=== PATIENT | female | born 1950 | race Caucasian/White ===

== ENCOUNTER → 2017-12-03 | Outpatient (CLI) | payer OTHER ==
[~2017-12-03] MED LIST: GADOBENATE DIMEGLUMINE 1 ML IV ONE
[2017-12-03 13:03] LABS: CREATININE, SERUM 1.06 mg/dL (0.57-1.11)
--- NOTE | 2017-12-04 12:29 | Diagnostic Imaging Report ---
ADDENDUM #1 Comparison to outside brain MRI performed on 10/30/2017: Abnormal low T1, high T2 and enhancement in the left nasopharyngeal region/skull base was already present on prior study. Again an ENT evaluation with histologic correlation is advised. The findings were discussed with the attending physician Dr. Rolle at the time of this dictation. Signed by: Dr. Katherine Peterson M.D. on 12/09/2017 3:20 PM ORIGINAL REPORT EXAMINATION: MRI of the neck without and with contrast HISTORY:Parotid mass COMPARISON:None available TECHNIQUE:Axial T1 FS, sagittal and coronal T1 precontrast, axial T2 fat sat, DWI, PD, coronal T2 fat sat, post contrast axial and coronal T1 fat sat Intravenous contrast: 10 mL of MultiHance. 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 There is no infiltration of the surrounding structures. -No specific T2 hyperintensity and enhancement within the left side of the inferior clivus/foramen magnum, left prevertebral muscles, posterior aspect of the left carotid space and left oropharynx, with partial effacement of the left posterolateral recess/fossa of Rosenmuller. Extension into the left parapharyngeal space is suspected. No definite intracranial involvement is seen at this time. This findings are worrisome for neoplasm with local infiltration of the surrounding structures or perhaps treatment related changes to previously treated pathology, correlation with past medical history is advised. LYMPH NODES: No enlarged cervical lymphadenopathy. OTHERS: Major salivary glands: Unremarkable. Thyroid gland: Unremarkable. Larynx: Unremarkable. Oral cavity: Unremarkable. Pharynx: Unremarkable . Blood vessels: Unremarkable. Sinuses: Unremarkable. Bones: Disc osteophyte, uncovertebral and facet arthrosis C5-C6 and C6-C7 resulting canal or foramina narrowing. IMPRESSION: 1. Nonspecific T2 hyperintense and enhancing abnormality within the left nasopharynx, underlying prevertebral muscles, clivus and carotid space, worrisome for neoplasm or perhaps posttreatment changes, correlation with past medical history, comparison to prior studies if available and ENT evaluation are recommended. 2. 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 Comparison to prior studies is advised to determine stability. 3. No enlarged cervical lymphadenopathy. Signed by: Dr. Katherine Peterson M.D. on 12/04/2017 12:25 PM
== END ==
LOC: US 10:48
PROVIDERS: ATTEND Otolaryngology
DX: K11.9 Disease of salivary gland, unspecified (principal)
CPT/HCPCS: 36415; 70543; 82565; 84520

== ENCOUNTER → 2019-07-23 | Outpatient (CLI) | payer MEDICARE ==
--- NOTE | 2019-07-23 19:17 | Diagnostic Imaging Report ---
Parathyroid Scan with SPECT Reason for exam: Hyperparathyroidism Radiopharmaceutical: Tc-99m sestamibi 27.5 mCi After intravenous administration of the radiopharmaceutical, immediate and 2-hour planar images of the neck and upper chest were obtained. Tomographic images of the neck and upper chest were also obtained following the initial planar images. Distribution of tracer activity appears physiologic throughout the neck and upper chest on the planar and tomographic images. No focal areas of increased tracer accumulation are identified. On the delayed planar images, washout of tracer from the thyroid is complete with no focal areas of persistent tracer activity. Impression: Negative parathyroid scan No enlarged hypermetabolic parathyroid glands are identified. Signed by: Dr. Janey Segura M.D. on 07/23/2019 7:14 PM
== END ==
LOC: NM 10:16
PROVIDERS: ATTEND Internal Medicine Medical Oncology
DX: E21.3 Hyperparathyroidism, unspecified (principal); D35.1 Benign neoplasm of parathyroid gland
CPT/HCPCS: 78071; A9500